=== PATIENT | female | born 2000 | race Caucasian/White ===

== ENCOUNTER 2018-10-10 20:05 | Emergency (ER) | payer OTHER ==
[~2018-10-10] VITALS: Ht 170.2 cm; Wt 52.2 kg
[2018-10-11] MEDS ORDERED: INTESTINEX680 M1 PO (00:24)
[2018-10-11] MEDS ORDERED: BACTRIM DS TAB1 EACH PO (00:24)
== END 2018-10-11 00:32 | disposition home or self-care (01) ==
LOC: ER 20:05
DX: N39.0 Urinary tract infection, site not specified (principal); N83.291 Other ovarian cyst, right side